=== PATIENT | female | born 1995 | race Hispanic/Latino ===

== ENCOUNTER 2019-11-29 01:35 | Observation (INO) | payer MEDICAID ==
[~2019-11-29] VITALS: Ht 157.5 cm; Wt 78.0 kg
[2019-11-29 02:06] LABS: APPEARANCE,URINE Clear (CLEAR); BILIRUBIN,URINE Negative (NEGATIVE); COLOR,URINE Yellow (YELLOW); GLUCOSE, URINE (UA) Negative (NEGATIVE); KETONES,URINE Negative (NEGATIVE); LEUKOCYTE ESTERASE ,URINE Small (NEGATIVE); NITRATE,URINE Negative (NEGATIVE); OCCULT BLOOD,URINE Large (NEGATIVE); PH,URINE 6.5 (5.0-8.0); PROTEIN,URINE Negative (NEGATIVE)
[2019-11-29 02:13] LABS: WBC,URINE 0-1 /HPF (0-1)
[2019-11-29 02:14] LABS: BACTERIA,URINE None Seen /HPF (None Seen); SQUAMOUS EPITHELIAL CELL,UR Rare /HPF (0-2)
[2019-11-29 02:16] LABS: AMPHET/METH SCREEN,URINE NEGATIVE (NEGATIVE); BARBITURATE SCREEN, URINE NEGATIVE (NEGATIVE); BENZODIAZEPINES SCREEN,URINE NEGATIVE (NEGATIVE); CANNABINOID SCREEN,URINE NEGATIVE (NEGATIVE); COCAINE SCREEN,URINE NEGATIVE (NEGATIVE); OPIATE SCREEN,URINE NEGATIVE (NEGATIVE); PHENCYCLIDINE SCREEN,URINE NEGATIVE (NEGATIVE)
[2019-11-29 03:24] LABS: HEMATOCRIT 34.8 % (36-48); MEAN CORPUSCULAR HEMOGLOBIN 29.5 pg (27.0-33.0); MEAN CORPUSCULAR HGB CONC 33.6 g/dL (32.0-36.0); MEAN CORPUSCULAR VOLUME 87.9 fL (79-99); PLATELET COUNT (AUTO) 164 K/uL (130-400); RED BLOOD CELL COUNT(AUTO) 3.96 MIL/uL (4.00-5.50); RED CELL DISTRIBUTION WIDTH 12.7 % (11.0-15.5); WHITE BLOOD COUNT (AUTO) 8.2 K/uL (4.8-10.8)
[2019-11-29] MEDS: LACTATED RINGERS 1000ML 1,000 ML IV PRN ×3 (05:06→12:37)
[2019-11-29] MEDS ORDERED: LACTATED RINGERS 1000ML 1,000 ML IV SCH (08:30)
[2019-11-29] MEDS ORDERED: TERBUTALINE SULFATE VIAL 1MG/ML SQ SCH (08:30)
== END 2019-11-29 16:56 | disposition home or self-care (01) ==
LOC: EDH 01:35 → LDH 01:36
PROVIDERS: ADMIT Obstetrics & Gynecology; ATTEND Obstetrics & Gynecology
DX: O20.9 Hemorrhage in early pregnancy, unspecified (principal); Z3A.37 37 weeks gestation of pregnancy
CPT/HCPCS: 36415; 76805; 76815; 80305; 81001; 85027; 86850; 86900; 86901; 96372; 99284; G0378 ×14; J3105; J7120 ×3; 96360; 96361

== ENCOUNTER 2020-03-20 23:30 | Emergency (ER) | payer MEDICAID ==
[~2020-03-20 23:30] MED LIST: PREN-202 PO
[2020-03-20] MEDS ORDERED: LIDOCAINE HCL-MPF 1% 2ML VIAL ONE (23:53)
[2020-03-20] MEDS ORDERED: CEFTRIAXONE SODIUM 1 GM ONE (23:53)
[2020-03-21] MEDS ORDERED: HYDROCODONE/ACETAMINOPHEN 5/325 MG TAB ONE (00:08)
[2020-03-21 00:24] LABS: CREATININE 0.7 mg/dL (0.5-1.5); POTASSIUM 3.8 mmol/L (3.5-5.1)
[2020-03-21 00:29] LABS: ALBUMIN 3.8 g/dL (3.5-5.0); BILIRUBIN,TOTAL 0.2 mg/dL (0.2-1.0); TOTAL PROTEIN, SERUM 7.6 g/dL (6.0-8.3)
[2020-03-21 00:35] LABS: BASOPHILS % (AUTO) 0.2 % (0.0-5.0); EOSINOPHILS % (AUTO) 2.7 % (0.0-8.0); HEMATOCRIT 37.3 % (36-48); LYMPHOCYTES % (AUTO) 28.6 % (21.0-51.0); MEAN CORPUSCULAR HEMOGLOBIN 28.5 pg (27.0-33.0); MEAN CORPUSCULAR HGB CONC 33.5 g/dL (32.0-36.0); NEUTROPHILS % (AUTO) 59.3 % (40.0-77.0); PLATELET COUNT (AUTO) 201 K/uL (130-400); RED BLOOD CELL COUNT(AUTO) 4.39 MIL/uL (4.00-5.50); RED CELL DISTRIBUTION WIDTH 12.4 % (11.0-15.5); WHITE BLOOD COUNT (AUTO) 9.5 K/uL (4.8-10.8)
== END 2020-03-21 01:22 | disposition home or self-care (01) ==
LOC: EDH 23:30
DX: K11.21 Acute sialoadenitis (principal)
CPT/HCPCS: 36415; 80053; 81025; 85025; 96372; 99283; J0696; J3490

== ENCOUNTER 2021-04-20 00:19 | Emergency (ER) | payer MEDICAID ==
[~2021-04-20] VITALS: Ht 154.9 cm; Wt 71.7 kg
[2021-04-20 01:59] LABS: APPEARANCE,URINE Clear (CLEAR); BILIRUBIN,URINE Negative (NEGATIVE); COLOR,URINE Yellow (YELLOW); GLUCOSE, URINE (UA) Negative (NEGATIVE); KETONES,URINE Negative (NEGATIVE); LEUKOCYTE ESTERASE ,URINE Small (NEGATIVE); NITRATE,URINE Negative (NEGATIVE); OCCULT BLOOD,URINE Negative (NEGATIVE); PROTEIN,URINE Negative (NEGATIVE)
[2021-04-20 02:04] LABS: BACTERIA,URINE Rare /HPF (None Seen); RBC,URINE 0-1 /HPF (0-1); WBC,URINE 0-1 /HPF (0-1)
[2021-04-20 02:05] LABS: MUCUS,URINE Moderate LPF (None Seen)
[2021-04-20 02:10] LABS: BASOPHILS % (AUTO) 0.1 % (0.0-5.0); EOSINOPHILS % (AUTO) 3.3 % (0.0-8.0); HEMATOCRIT 40.4 % (36-48); LYMPHOCYTES % (AUTO) 28.8 % (21.0-51.0); MEAN CORPUSCULAR HEMOGLOBIN 29.1 pg (27.0-33.0); MEAN CORPUSCULAR HGB CONC 33.7 g/dL (32.0-36.0); MEAN CORPUSCULAR VOLUME 86.5 fL (79-99); MONOCYTES % (AUTO) 6.7 % (3.0-13.0); NEUTROPHILS % (AUTO) 60.8 % (40.0-77.0); PLATELET COUNT (AUTO) 262 K/uL (130-400); RED BLOOD CELL COUNT(AUTO) 4.67 MIL/uL (4.00-5.50); RED CELL DISTRIBUTION WIDTH 12.9 % (11.0-15.5); WHITE BLOOD COUNT (AUTO) 8.9 K/uL (4.8-10.8)
[2021-04-20 02:19] LABS: CREATININE 0.7 mg/dL (0.5-1.5); POTASSIUM 3.9 mmol/L (3.5-5.1)
[2021-04-20 02:29] LABS: ALBUMIN 3.7 g/dL (3.5-5.0); BILIRUBIN,TOTAL 0.2 mg/dL (0.2-1.0); TOTAL PROTEIN, SERUM 8.1 g/dL (6.0-8.3)
[2021-04-20] MEDS ORDERED: CYCL10TA7 PO (02:41)
[2021-04-20] MEDS ORDERED: CEPH250C2 PO (02:41)
[2021-04-20] MEDS ORDERED: CEPHALEXIN 500 MG CAPSULE PO SCH (02:45)
[2021-04-20 02:57] VITALS: BP 132/78
== END 2021-04-20 03:03 | disposition home or self-care (01) ==
LOC: EDH 00:19
DX: O99.891 Other specified diseases and conditions complicating pregnancy (principal); M54.5 Low back pain; M62.838 Other muscle spasm; O26.891 Other specified pregnancy related conditions, first trimester; R82.71 Bacteriuria; Z79.899 Other long term (current) drug therapy; Z3A.01 Less than 8 weeks gestation of pregnancy
CPT/HCPCS: 36415; 76801; 80053; 81001; 83690; 84702; 85025; 86850; 86900; 86901

== ENCOUNTER 2023-06-06 23:39 | Emergency (ER) | payer MEDICAID ==
[~2023-06-06 23:39] MED LIST changes: +CEPH250C2 PO; +CYCL-309 PO
[2023-06-07] MEDS ORDERED: LORAZEPAM 2 MG/ML 1 ML VIAL ONE (00:10)
[2023-06-07] MEDS ORDERED: LORAZEPAM 2 MG/ML 1 ML VIAL IVP ONE (00:30)
[2023-06-07 00:46] LABS: APPEARANCE,URINE CLEAR (CLEAR); BILIRUBIN,URINE NEGATIVE (NEGATIVE); COLOR,URINE COLORLESS (YELLOW); GLUCOSE, URINE (UA) NEGATIVE (NEGATIVE); KETONES,URINE NEGATIVE (NEGATIVE); LEUKOCYTE ESTERASE ,URINE NEGATIVE Leu/uL (NEGATIVE); NITRATE,URINE NEGATIVE (NEGATIVE); OCCULT BLOOD,URINE NEGATIVE (NEGATIVE); PH,URINE 5.5 (5.0-8.0); PROTEIN,URINE NEGATIVE (NEGATIVE); UROBILINOGEN,URINE 0.2 mg/dL (0.2-1.0)
[2023-06-07 00:48] LABS: ADD UA MICROSCOPIC NO
[2023-06-07 00:50] LABS: HCG,QUALITATIVE URINE NEGATIVE (NEGATIVE)
[2023-06-07 00:51] LABS: AMPHET/METH SCREEN,URINE NEGATIVE (NEGATIVE); BARBITURATE SCREEN, URINE NEGATIVE (NEGATIVE); BENZODIAZEPINES SCREEN,URINE NEGATIVE (NEGATIVE); CANNABINOID SCREEN,URINE NEGATIVE (NEGATIVE); COCAINE SCREEN,URINE NEGATIVE (NEGATIVE); OPIATE SCREEN,URINE NEGATIVE (NEGATIVE); PHENCYCLIDINE SCREEN,URINE NEGATIVE (NEGATIVE)
[2023-06-07 00:58] LABS: ALBUMIN 3.8 g/dL (3.5-5.0); BILIRUBIN,TOTAL 0.1 mg/dL (0.2-1.0); CREATININE 0.7 mg/dL (0.5-1.5); POTASSIUM 3.6 mmol/L (3.5-5.1); TOTAL PROTEIN, SERUM 7.6 g/dL (6.0-8.3)
[2023-06-07 01:00] LABS: BASOPHILS # (AUTO) 0.02 K/uL (0.00-0.20); BASOPHILS % (AUTO) 0.2 % (0.0-5.0); EOSINOPHILS # (AUTO) 0.24 K/uL (0.00-0.70); EOSINOPHILS % (AUTO) 2.8 % (0.0-8.0); HEMATOCRIT 36.6 % (36-48); IMMATURE GRANULOCYTE ABSOLUTE 0.02 K/uL (0-1); LYMPHOCYTES # (AUTO) 3.1 K/uL (1.0-4.8); LYMPHOCYTES % (AUTO) 35.4 % (21.0-51.0); MEAN CORPUSCULAR HEMOGLOBIN 29.7 pg (27.0-33.0); MEAN CORPUSCULAR HGB CONC 34.4 g/dL (32.0-36.0); MEAN CORPUSCULAR VOLUME 86.3 fL (79-99); MONOCYTES # (AUTO) 0.7 K/uL (0.1-1.0); MONOCYTES % (AUTO) 8.2 % (3.0-13.0); NEUTROPHILS # (AUTO) 4.6 K/uL (1.8-7.7); NEUTROPHILS % (AUTO) 53.2 % (40.0-77.0); PLATELET COUNT (AUTO) 254 K/uL (130-400); RED BLOOD CELL COUNT(AUTO) 4.24 MIL/uL (4.00-5.50); RED CELL DISTRIBUTION WIDTH 12.1 % (11.0-15.5); WHITE BLOOD COUNT (AUTO) 8.6 K/uL (4.8-10.8)
[2023-06-07] MEDS ORDERED: ACETAMINOPHEN 650 MG SUPPOSITORY RC ONE (01:00)
[2023-06-07] MEDS ORDERED: ONDANSETRON 4MG INJ IVP ONE (01:00)
[2023-06-07] MEDS ORDERED: ACETAMINOPHEN 325 MG SUPPOSITORY RC ONE (01:00)
[2023-06-07] MEDS ORDERED: KETOROLAC 30MG VIAL (30MG/ML) ONE (02:19)
[2023-06-07 02:20] VITALS: TEMP 98.5
[2023-06-07] MEDS ORDERED: KETOROLAC 30MG VIAL (30MG/ML) IVP ONE (02:30)
[2023-06-07 06:01] VITALS: BP 135/82; PULSE 80; RESP 20; O2SAT 99
== END 2023-06-07 05:55 | disposition home or self-care (01) ==
LOC: EDH 23:39
DX: R41.82 Altered mental status, unspecified (principal); R51.9 Headache, unspecified; G40.909 Epilepsy, unspecified, not intractable, without status epilepticus; Z79.899 Other long term (current) drug therapy; Z86.011 Personal history of benign neoplasm of the brain
CPT/HCPCS: 99285; 80053; 80305; 85025; 81003; 81025; 36415; 96374; 70450; 96375; J2405; J2060; J1885

== ENCOUNTER 2023-11-27 10:52 | Emergency (ER) | payer MEDICAID ==
[~2023-11-27] VITALS: Ht 157.5 cm; Wt 70.8 kg
[2023-11-27 10:55] VITALS: BP 112/70; PULSE 108; RESP 16; O2SAT 100
[2023-11-27 11:19] LABS: RAPID GROUP A STREP negative (NEGATIVE)
[2023-11-27 11:24] LABS: SARS-CoV-2, RNA, NAAT POSITIVE SARS CoV-2 (NEGATIVE)
[2023-11-27 11:27] LABS: INFLUENZA TYPE A Negative For Type A (NEGATIVE); INFLUENZA TYPE B Negative For Type B (NEGATIVE)
[2023-11-27] MEDS ORDERED: DEXAMETHASONE SOD PHOSPHATE 4 MG/ML 1ML VIAL IM ONE (13:30)
[2023-11-27] MEDS ORDERED: IBUPROFEN 600 MG TABLET PO ONE (13:30)
[2023-11-27] MEDS ORDERED: GUAIFENESIN/DEXTROMETHORPHAN 1 EACH TAB.SR.12H PO ONE (13:30)
[2023-11-27] MEDS ORDERED: FLUT16H NASAL (14:49)
[2023-11-27] MEDS ORDERED: BROM118S48 PO (14:49)
[2023-11-27] MEDS ORDERED: AZIT250T PO (14:49)
== END 2023-11-27 15:02 | disposition home or self-care (01) ==
LOC: EDH 10:52
DX: U07.1 COVID-19 (principal); R05.9 Cough, unspecified
CPT/HCPCS: 99284; 71045; 87635; 87880; 87804 ×2; 96372; J1100